=== PATIENT | male | born 1935 | race Caucasian/White ===

== ENCOUNTER → 2018-09-21 06:59 | Day surgery (SDC) | payer MEDICARE, BC ==
--- NOTE | 2018-09-10 22:36 | HP ---
CC: Dr. Charan Coello * ADMISSION HISTORY AND PHYSICAL: DATE OF ADMISSION: 09/21/18 ATTENDING SURGEON: Dr. Rishi Corley.* (DICTATED BY SAADIA STEPHEN) CHIEF COMPLAINT: Umbilical hernia. HISTORY OF PRESENT ILLNESS: This is an 82, soon to be 83-year-old male who states that he has had an umbilical hernia present for at least the past 20 years. In recent years, it had began to bother him more with increased tenderness to direct pressure, increased bulging, and "gas pain." He also in recent months has experienced some increased constipation. He was seen by Dr. Corley 2 years ago, but deferred repair at that time. He was seen again more recently, at which time exam confirmed the presence of a nonreducible somewhat tender umbilical hernia. Dr. Corley has discussed with him the indications for repair, the risks, benefits, and alternatives, and he would like to proceed as scheduled with open repair umbilical hernia with mesh. PAST MEDICAL HISTORY: Hypertension, hyperlipidemia, coronary artery disease ( prior catheterization showed minor branch disease and he has been treated with medical therapy; he did undergo a stress test in recent years, which he states was a normal study; he has no symptoms of chest pain and is fairly active). PAST SURGICAL HISTORY: Includes TURP utilizing laser for BPH, tonsillectomy remotely, and dental extractions. No reported surgical or anesthesia complications. CURRENT MEDICATIONS: 1. Aspirin 325 mg one-half tablet at h.s. (the patient instructed to hold for 7 to 10 days preop). 2. Niaspan 500 mg 2 tablets q.h.s. 3. Losartan 75 mg daily. 4. Crestor 20 mg daily. 5. Potassium chloride 10 mEq daily. 6. Chlorthalidone 25 mg daily. 7. Metamucil once daily. 8. Stool softener once daily. DRUG ALLERGIES: None known. FAMILY HISTORY: Negative for anesthesia problems, bleeding, or clotting disorder. SOCIAL HISTORY: The patient lives with his . 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 He is a former smoker, who quit over 30 years ago. He drinks between 1 and 3 drinks per day and denies any other recreational drug use. REVIEW OF SYSTEMS: General: No recent constitutional symptoms or acute illnesses other than described above. He states that his weight has increased approximately 20 pounds in recent years. HEENT: No problems reported. Cardiovascular: No chest pain, palpitations; see also above history for hypertension. Respiratory: No history of chronic cough or shortness of breath. GI: No problems reported. Colonoscopy done within the past year with a couple of benign polyps removed and recommended followup in 5 years. : No problems reported. Endocrine: No diabetes or thyroid dysfunction. Remainder of review of systems is negative. PHYSICAL EXAMINATION GENERAL: Well-nourished, well-developed male, in no acute distress. VITAL SIGNS: Height 68.5 inches, weight 193 pounds. Blood pressure 112/74, pulse 72, respirations 18. HEENT: Pupils are equal, round, reactive. EOMs intact. No conjunctival pallor. Oropharynx: Teeth in good repair. No intraoral lesions. NECK: No lymphadenopathy, thyromegaly, or masses. LUNGS: Clear to auscultation. No rales or wheezes. HEART: Regular rate and rhythm. No murmur noted. ABDOMEN: Visible and palpable bulge of the umbilicus which is mildly tender and incompletely reducible consistent with umbilical hernia. The remainder of the abdomen is soft, nontender, without palpable masses or organomegaly. No palpable right groin hernia, but there is some weakness in the left groin with cough impulse. RECTAL: Not done. BACK: No spinous process or CVA tenderness. EXTREMITIES: No edema. NEUROLOGIC: Grossly intact. SKIN: Warm and dry. No suspicious rashes or lesions noted. IMPRESSION: Umbilical hernia. PLAN: Open repair umbilical hernia with mesh. SAADIA STEPHEN [id number]/[facility] #: [id number] DESHAWN
[~2018-09-21 06:59] MED LIST: Acetaminophen TAB* 325 MG ONE; Acetaminophen TAB* 325 MG PO PRN; Buffered Lidocaine 1% SYRIN* 1 ML/SYRINGE INTRADERM ONE; Bupivacaine 0.5% W/EPI SDV* 30 ML VIAL ONE; HYDROcodone/ACETAMIN 5-325 MG* 1 TAB PO PRN; Ibuprofen TAB* 200 MG ONE; Ibuprofen TAB* 600 MG ONE; Ibuprofen TAB* 600 MG PO PRN; KETAMINE HCL* 50 MG/ML 10 ML VIAL ONE; Lactated Ringers 1000 ML Bag* 1,000 ML IV SCH; Lidocaine 1% INJ* 10 MG/ML 30 ML SDV ONE; Midazolam* 1 MG/ML 2 ML VIAL (2 MG) ONE; Naloxone* 0.4 MG/ML 1 ML VIAL IV PRN; Ondansetron INJ* 2 MG/ML VIAL IV PRN; Propofol* 10 MG/ML 20 ML BTL ONE; ceFAZolin 2 GM PREMIX in ORs 2 GM/50 ML BAG ONE; fentaNYL* 50 MCG/ML 2 ML VIAL (100 MCG VIAL) ONE; oxyCODONE/Acetamin 5/325 MG* TAB ONE; oxyCODONE/Acetamin 5/325 MG* TAB PO PRN
--- NOTE | 2018-09-21 11:00 | BRIEFOPN ---
Brief Operative Note - Surgery Procedures: PRE/POSTOP DX: UMBILICAL HERNIA PROC: OPEN UMBILICAL HERNIA REPAIR WITH MESH SURG: MECENAS ASSIST: NONE ANES: LOCAL/MAC; LEA EBL: MIN IVF: CRYST SPEC: NONE DRAIN/COMPL: NONE COND: STABLE TO RR.
[2018-09-21] MEDS: fentaNYL* 50 MCG/ML 2 ML VIAL (100 MCG VIAL) IV PRN ×3 (11:10→11:49)
[2018-09-21 12:18] VITALS: BP 134/78
--- NOTE | 2018-09-21 16:02 | OP ---
CC: Charan Coello MD * DATE OF OPERATION: 09/21/18 - SDS DATE OF : 37 SURGEON: Rishi Corley MD VALVE REPAIRER: None. ANESTHESIOLOGIST: Dr. Dinh. ANESTHESIA: Local MAC. PRE-OP DIAGNOSIS: Umbilical hernia. POST-OP DIAGNOSIS: Umbilical hernia. OPERATIVE PROCEDURE: Open umbilical hernia repair with mesh. ESTIMATED BLOOD LOSS: Less than 10 mL. IV FLUIDS: Crystalloid. SPECIMEN: None. DRAINS: None. COMPLICATIONS: None. COUNTS: Instruments, needle, and sponge counts were correct. DESCRIPTION OF PROCEDURE: The patient was brought to the operating room and placed on the table supine. Sequential compression devices were placed on both lower extremities. General anesthesia was administered. The abdomen was prepped and draped in the usual sterile fashion and time-out was performed. He did receive appropriate intravenous antibiotics. Local anesthetic was infiltrated into the field block periumbilically. A curvilinear infraumbilical incision was created with a 15 blade scalpel. Subcutaneous tissues were divided with cautery. There was a large fat containing hernia. The umbilical skin was elevated and the umbilical stalk was divided. The defect was about 3 cm across. The fat was chronically incarcerated within the hernia, was dissected free circumferentially and then reduced into the perineal cavity. Preperitoneal dissection was performed after clearly defining the edges of the hernia defect and circumferential clearing of the preperitoneal space was performed for a distance of about 4 cm circumferentially, then the repair was performed with the Ventrio 6.4 cm mesh, which was placed into the preperitoneal space and the mesh drawn up against the abdominal wall with the centrally placed straps. A 0-Ethibond suture was used to suture the mesh transabdominally at the superior and inferior flaps. Then, the straps were cut and the hernia was closed transversally with interrupted 0- Ethibond suture using 3 [id number] sutures and a simple suture to complete the closure. The umbilical stalk was reapproximated to the anterior abdominal wall with 3-0 Vicryl and then the incision was closed in 2 layers with 3-0 Vicryl for the deep dermis, 4-0 Monocryl for the skin edge and then DermaFlex was applied. A dressing of 4x4 gauze was applied with paper tape. The patient tolerated the procedure well and was awakened and transferred to the recovery in stable condition. [id number]/[facility] #: [id number] DESHAWN
== END | disposition home or self-care (01) ==
LOC: OR 06:59
PROVIDERS: ATTEND Surgery
DX: K42.9 Umbilical hernia without obstruction or gangrene (principal); I10 Essential (primary) hypertension; E78.5 Hyperlipidemia, unspecified; I25.10 Atherosclerotic heart disease of native coronary artery without angina pectoris
CPT/HCPCS: A9270-GY; C1781; J0690; J2250; J2704; J3010